=== PATIENT | male | born 1985 | race African-American/Black ===

== ENCOUNTER 2017-02-01 19:37 | Emergency (ER) | payer SELFPAY ==
[~2017-02-01] VITALS: Ht 185.4 cm; Wt 70.3 kg
[2017-02-01 19:58] VITALS: BP 157/97
--- NOTE | 2017-02-02 05:55 | ED.ADGEN ---
Past History Past Medical History: Hypertension Past Surgical History: No Surgical History Alcohol Use: None Drug Use: None Adult General Chief Complaint Chief Complaint Dizziness HPI HPI Patient is a 31-year-old -[place] male presents with right ear fullness and complaints of dizziness with walking. No headache, vomiting, loss of hearing. History of seasonal allergies. Review of Systems Review of Systems Review symptoms as per history of present illness. All other review symptoms are negative Allergies Allergies Allergies Coded Allergies Type Severity Reaction Last Updated Verified No Known Drug Allergies 07/12/14 No Physical Exam Physical Exam Constitutional: Well developed, well nourished, no acute distress, non-toxic appearance. [] HENT: Normocephalic, atraumatic, bilateral external ears normal, clear effusion behind right TM oropharynx moist, no oral exudates, nose normal. [] Eyes: PERRLA, EOMI, conjunctiva normal, no discharge. [] Neck: Normal range of motion, no tenderness, supple, no stridor. [] Cardiovascular:Heart rate regular rhythm, no murmur [] Lungs & Thorax: Bilateral breath sounds clear to auscultation [] Abdomen: Bowel sounds normal, soft, no tenderness, no masses, no pulsatile masses. [] Skin: Warm, dry, no erythema, no rash. [] Back: No tenderness, no CVA tenderness. [] Extremities: No tenderness, no cyanosis, no clubbing, ROM intact, no edema. [] Neurologic: Alert and oriented X 3, normal motor function, normal sensory function, no focal deficits noted. [] Psychologic: Affect normal, judgement normal, mood normal. [] Current Patient Data Vital Signs Vital Signs Date Time Temp Pulse Resp B/P (MAP) Pulse Ox O2 Delivery O2 Flow Rate FiO2 02/01/17 19:58 98.3 102 16 98 Room Air EKG EKG [] Radiology/Procedures Radiology/Procedures [] Course & Med Decision Making Course & Med Decision Making Pertinent Labs and Imaging studies reviewed. (See chart for details) [] Final Impression Final Impression [#1 acute serous otitis media #2 vertigo] Problems: Dragon Disclaimer Dragon Disclaimer This electronic medical record was generated, in whole or in part, using a voice recognition dictation system. SERGIO CAMPOS DO Feb 02, 2017 05:55
== END 2017-02-01 20:51 | disposition home or self-care (01) ==
LOC: ER 19:37
DX: H65.01 Acute serous otitis media, right ear (principal); R42 Dizziness and giddiness; I10 Essential (primary) hypertension
CPT/HCPCS: 99282

== ENCOUNTER 2017-07-23 01:53 | Emergency (ER) | payer SELFPAY ==
[~2017-07-23] VITALS: Ht 185.4 cm; Wt 70.3 kg
[2017-07-23 01:53] VITALS: BP 138/96
[2017-07-23] MEDS ORDERED: ACETAMINOPHEN 500 MG TABLET PO ONE (02:30)
[2017-07-23 02:43] LABS: INFLUENZA A PATIENT NEGATIVE (NEGATIVE); INFLUENZA B PATIENT NEGATIVE (NEGATIVE)
[2017-07-23] MEDS ORDERED: PRED20TA PO (02:55)
[2017-07-23] MEDS ORDERED: MOME17SP NS (02:55)
--- NOTE | 2017-07-23 03:05 | PHYS DOC ---
General Chief Complaint: COUGH Stated Complaint: COLD,FEVER,HEADACHE PRESSURE Time Seen by MD: 02:09 Source: patient Exam Limitations: no limitations Problems: History of Present Illness Initial Comments 32-year-old male comes to the ED complaining of sneezing and watery eyes and dry cough. Patient states that since Wednesday he's had the above symptoms denies any discharge other than thin clear nasal drainage. He's had itchy watery eyes and sneezing with some mild frontal and maxillary pressure. No fever or chills no body aches his primary complaint is the nasal symptoms are interrupting ability to sleep. He thinks symptoms may be due to allergies as they're onset coincides with the change in weather. Influenza studies obtained by staff prior to my seeing the patient Timing/Duration: other Severity: moderate Modifying Factors: improves with other Associated Symptoms: cough, other Allergies: Coded Allergies: No Known Drug Allergies (Unverified , 07/12/14) Past Medical History Medical History: no pertinent history Surgical History: noncontributory Social History Smoker: cigarettes Alcohol: none Drugs: none Review of Systems Constitutional: denies chills, denies fever, denies malaise EENTM: see HPI, denies eye pain, tearing, denies ear pain, denies ear discharge , denies nose pain, nose congestion, denies throat pain Respiratory: cough, denies orthopnea, denies shortness of breath, denies wheezing Cardiovascular: denies chest pain, denies palpitations, denies syncope Gastrointestinal: denies abdominal pain, denies nausea, denies vomiting Musculoskeletal: denies back pain, denies joint swelling, denies neck pain Psychiatric/Neurological: denies headache, denies numbness, denies paresthesia Physical Exam General Appearance: WD/WN, no apparent distress Eyes: bilateral eye PERRL, bilateral eye EOMI, bilateral eye other ( conjunctivae injected) Ear, Nose, Throat: other (turbinates inflamed clear nasal discharge) Neck: non-tender, supple Respiratory: normal breath sounds, no respiratory distress Cardiovascular: normal peripheral pulses, regular rate, rhythm Extremities: non-tender, normal inspection 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 Tylenol and ibuprofen as needed. Discontinue tobacco abuse. Rx: prednisone, nasonex Follow up at [facility] in 2 weeks if no improvement. Return to ED with new or changing symptoms. VANI ZAMBRANO DO Jul 23, 2017 03:05
[2017-07-23] MEDS ORDERED: predniSONE 20 MG TABLET PO ONE (03:30)
== END 2017-07-23 03:10 | disposition home or self-care (01) ==
LOC: ER 01:53
DX: J30.9 Allergic rhinitis, unspecified (principal); F17.210 Nicotine dependence, cigarettes, uncomplicated
CPT/HCPCS: 87804; 99284

== ENCOUNTER 2019-02-14 12:28 | Emergency (ER) | payer SELFPAY ==
[~2019-02-14] VITALS: Ht 185.4 cm; Wt 70.3 kg
[~2019-02-14 12:28] MED LIST: MOME17SP NS; PRED20TA PO
[2019-02-14 12:37] VITALS: BP 155/107
[2019-02-14] MEDS ORDERED: LIDO15SO2 MT (13:22)
--- NOTE | 2019-02-14 13:23 | PHYS DOC ---
Past History Past Medical History: Hypertension Past Surgical History: No Surgical History Alcohol Use: None Drug Use: None Adult General Chief Complaint Chief Complaint: MULTIPLE COMPLAINTS [facility] HPI Patient is a 33-year-old male who presents with complaint of sore throat and gagging sensation at times. Patient states that he is able to swallow but sometimes he just feels like he is gagging because of the sore throat. He states that he just recently got over a cold. He states these been having some intermittent coughing but denies any nasal discharge. He also denies any fever, chest pain or shortness breath.[] Review of Systems Review of Systems Constitutional: Denies fever or chills [] HENT: Positive sore throat [] Respiratory: Positive cough without shortness of breath [] Cardiovascular: No additional information not addressed in HPI [] Integument: Denies rash or skin lesions [] Allergies Allergies Allergies Coded Allergies Type Severity Reaction Last Updated Verified No Known Drug Allergies 07/12/14 No Physical Exam Physical Exam Constitutional: Well developed, well nourished, no acute distress, non-toxic appearance. [] HENT: Normocephalic, atraumatic, bilateral external ears normal, pharyngeal erythema without exudates. [] Neck: Normal range of motion, no tenderness, supple, mild cervical lymphadenopathy. [] Cardiovascular:Heart rate regular rhythm, no murmur [] Lungs & Thorax: Bilateral breath sounds clear to auscultation [] Current Patient Data Vital Signs Vital Signs Date Time Temp Pulse Resp B/P (MAP) Pulse Ox O2 Delivery O2 Flow Rate FiO2 02/14/19 12:37 98.1 99 EKG EKG [] Radiology/Procedures Radiology/Procedures [] Course & Med Decision Making Course & Med Decision Making Pertinent Labs and Imaging studies reviewed. (See chart for details) [] Dragon Disclaimer Dragon Disclaimer This electronic medical record was generated, in whole or in part, using a voice recognition dictation system. Departure Departure: Impression: Primary Impression: Pharyngitis Disposition: 01 HOME, SELF-CARE Condition: STABLE Referrals: PCP,NO (PCP) Patient Instructions: Viral Pharyngitis Scripts Lidocaine HCl (Lidocaine HCl Viscous) 15 Ml Solution 5 ML MT Q4HRS PRN for sore throat, #100 MISC Prov: JACKSON DENIS Jr. DO 02/14/19 Problem Qualifiers Primary Impression: Pharyngitis Pharyngitis/tonsillitis etiology: unspecified etiology Qualified Codes: J02.9 - Acute pharyngitis, unspecified JACKSON DENIS Jr. DO Feb 14, 2019 13:22
== END 2019-02-14 13:42 | disposition home or self-care (01) ==
LOC: ER 12:28
DX: J02.9 Acute pharyngitis, unspecified (principal); I10 Essential (primary) hypertension
CPT/HCPCS: 87070; 87880; 99283

== ENCOUNTER 2019-03-03 19:39 | Emergency (ER) | payer SELFPAY ==
[~2019-03-03] VITALS: Ht 185.4 cm; Wt 71.9 kg
[~2019-03-03 19:39] MED LIST changes: +LIDO15SO2 MT
[2019-03-03 19:45] VITALS: BP 146/93
--- NOTE | 2019-03-03 19:47 | ED.ADGEN ---
Past History Past Medical History: Hypertension Past Surgical History: No Surgical History Alcohol Use: None Drug Use: None Adult General Chief Complaint Chief Complaint ".. I got these white spots in my throat.. and sometimes it feels swollen.. I was here 2 weeks ago.. for same things.. the said it was post nasal drainage.. a viral or allergy thing.... but I am worried... something is wrong..." HPI HPI Patient is a 33 year old male who presents with above hx and complaints of sore throat. Patient does have mildly injected pharynx with some very small white plaques. No history or chain adenopathy. No stridor. Does have some mild postnasal drip. Patient has very severe dental decay with molars rotted into the gums bilaterally. No trismus. No pointing abscesses. Patient denies any history immunosuppression. No travel. No specific ill contacts. Patient denies history of oral sex. Patient remote history of gonorrhea which was treated. Patient normally follows at [place] Review of Systems Review of Systems Constitutional: Denies fever or chills [] Eyes: Denies change in visual acuity, redness, or eye pain [] HENT: Complaints of dental pain, nasal congestion and sore throat [] Respiratory: Denies cough or shortness of breath [] Cardiovascular: No additional information not addressed in HPI [] GI: Denies abdominal pain, nausea, vomiting, bloody stools or diarrhea [] : Denies dysuria or hematuria [] Musculoskeletal: Denies back pain or joint pain [] Integument: Denies rash or skin lesions [] Neurologic: Denies headache, focal weakness or sensory changes [] Endocrine: Denies polyuria or polydipsia [] All other systems were reviewed and found to be within normal limits, except as documented in this note. Family History Family History Noncontributory Current Medications Current Medications Current Medications Medications (Trade) Dose Ordered Sig/[place] Start Time Stop Time Status Last Admin Dose Admin Prednisone (Prednisone) 20 mg STK-MED ONCE 03/03/19 20:12 03/03/19 20:12 DC Allergies Allergies Allergies Coded Allergies Type Severity Reaction Last Updated Verified No Known Drug Allergies 03/03/19 No Physical Exam Physical Exam Constitutional: Well developed, well nourished, moderate acute distress, non- toxic appearance. [] HENT: Normocephalic, atraumatic, bilateral external ears normal, oropharynx moist, very mild injected pharynx, few small aphthous ulcers, no oral exudates, nose injected turbinates with clear rhinorrhea. Very extensive dental decay. Eyes: PERRLA, EOMI, conjunctiva normal, no discharge. [] Neck: Normal range of motion, no tenderness, supple, no stridor. [] Cardiovascular:Heart rate regular rhythm, no murmur [] Lungs & Thorax: Bilateral breath sounds equal at apex with few scattered wheezes on auscultation [] Abdomen: Bowel sounds normal, soft, no tenderness, no masses, no pulsatile masses. [] Skin: Warm, dry, no erythema, no rash. [] Back: No tenderness, no CVA tenderness. [] Extremities: No tenderness, no cyanosis, no clubbing, ROM intact, no edema. [] Neurologic: Alert and oriented X 3, normal motor function, normal sensory function, no focal deficits noted. [] Psychologic: Affect anxious, judgement normal, mood normal. [] Current Patient Data Vital Signs Vital Signs Date Time Temp Pulse Resp B/P (MAP) Pulse Ox O2 Delivery O2 Flow Rate FiO2 03/03/19 19:45 98.4 98 20 100 Room Air Lab Results Laboratory Tests Test 03/03/19 19:57 Group A Streptococcus Rapid Negative (NEGATIVE) EKG EKG [] Radiology/Procedures Radiology/Procedures [] Course & Med Decision Making Course & Med Decision Making Pertinent Labs and Imaging studies reviewed. (See chart for details). Patient strep screen was negative advised patient most likely have a viral syndrome. Pt. Also may have a component of postnasal drip. Patient must follow- up with dentist. This could be the major contributing to his symptoms. Patient return of any concerns. Must follow-up with dentist. Encouraged the patient to stop smoking. [] Final Impression Final Impression 1. Pharyngitis[]- viral syndrome 2. Extensive dental decay 3. Tobacco use Dragon Disclaimer Dragon Disclaimer This electronic medical record was generated, in whole or in part, using a voice recognition dictation system. Dragon Disclaimer This chart was dictated in whole or in part using Voice Recognition software in a busy, high-work load, and often noisy Emergency Department environment. It may contain unintended and wholly unrecognized errors or omissions. NICOLAS FLETCHER MD Mar 03, 2019 19:47
[2019-03-03] MEDS ORDERED: predniSONE 20 MG TABLET ONE (20:12)
[2019-03-03] MEDS ORDERED: predniSONE 20 MG TABLET PO ONE (20:15)
== END 2019-03-03 20:35 | disposition home or self-care (01) ==
LOC: ER 19:39
DX: B34.9 Viral infection, unspecified (principal); K02.9 Dental caries, unspecified; R09.82 Postnasal drip; I10 Essential (primary) hypertension; Z72.0 Tobacco use
CPT/HCPCS: 87070; 87880; 99283; J7512

== ENCOUNTER 2019-07-23 17:32 | Emergency (ER) | payer SELFPAY ==
[~2019-07-23] VITALS: Ht 185.4 cm; Wt 71.9 kg
[2019-07-23 17:32] VITALS: BP 137/90
[~2019-07-23 17:32] MED LIST changes: -LIDO15SO2 MT; +LIDO20SO10 MT
--- NOTE | 2019-07-23 17:50 | PHYS DOC ---
Past History Past Medical History: Anxiety, Hypertension Past Surgical History: No Surgical History, Other Additional Past Surgical Histo: cyst removed from lt upper arm Alcohol Use: None Drug Use: None Adult General Chief Complaint Chief Complaint: MULTIPLE COMPLAINTS HPI HPI Patient is a 34-year-old male who presents to the emergency department for evaluation. He states he has been having an abnormal sensation while swallowing in his throat for the past many months, he has been seen in the emergency department in the past, tested negative for strep, but has not followed up with ENT as an outpatient. He also states for the past several months, he has been having episodes of lightheadedness, primarily when he gets anxious, such as walking into a public place, and he does have an underlying history of anxiety. He denies any pain at this time, including any throat pain. Denies any chest pain, current lightheadedness, shortness of breath, palpitations, headache, vision changes, numbness, or weakness. There are no alleviating or exacerbating factors to his symptoms. The patient is having no new or acute complaints, all of his symptoms have been ongoing for several months and relatively stable, his dizziness and lightheadedness is intermittent and situational. Review of Systems Review of Systems Constitutional: Denies fever or chills [] Eyes: Denies change in visual acuity, redness, or eye pain [] HENT: Denies nasal congestion or sore throat denies throat pain[] Respiratory: Denies cough or shortness of breath [] Cardiovascular: The patient denies any shortness of breath, chest pain, palpitations, or orthopnea [] GI: Denies abdominal pain, nausea, vomiting, bloody stools or diarrhea [] : Denies dysuria or hematuria [] Musculoskeletal: Denies back pain or joint pain [] Integument: Denies rash or skin lesions [] Neurologic: Denies headache, focal weakness or sensory changes [] Endocrine: Denies polyuria or polydipsia [] All other systems were reviewed and found to be within normal limits, except as documented in this note. Allergies Allergies Allergies Coded Allergies Type Severity Reaction Last Updated Verified No Known Drug Allergies 03/03/19 No Physical Exam Physical Exam PHYSICAL EXAM: CONSTITUTIONAL: Well developed, well nourished HEAD: normocephalic, atraumatic EENT: PERRL, EOMI. Conjunctivae normal color, sclerae non-icteric; moist mucous membranes. The oropharynx is nonerythematous. There is no exudate. The uvula is midline. There is no abnormality noted. Tympanic membranes are normal bilaterally. NECK: Supple, non-tender; no meningismus. LUNGS: Lungs CTA, breathing even and unlabored. Normal air movement. HEART: Regular rate and rhythm, no murmur CHEST: No deformity; non-tender ABDOMEN: The abdomen is soft, and non-tender, no masses or bruits. EXTREM: Normal ROM; no deformity, no calf tenderness. Normal pulses palpable in all extremities. There is no pedal edema. SKIN: No rash; no diaphoresis NEURO: Alert; normal speech and cognition; CN's grossly intact; strength grossly intact without focal deficit. BACK: No CVA TTP. PSYCHIATRIC: The patient is currently calm. EKG EKG [] Radiology/Procedures Radiology/Procedures [] Course & Med Decision Making Course & Med Decision Making Patient underwent a medical screening exam, and per hospital MSE policy, declined to complete course of treatment in this facility. I did discuss importance of obtaining outpatient ENT follow-up, and return precautions were discussed in detail. Dragon Disclaimer Dragon Disclaimer This electronic medical record was generated, in whole or in part, using a voice recognition dictation system. Departure Departure: Impression: Primary Impression: Dizziness Additional Impressions: Anxiety Throat discomfort Disposition: 07 AGAINST MEDICAL ADVICE Condition: STABLE Referrals: PCP,NO (PCP) Patient Instructions: Anxiety and Panic Attacks, Sore Throat Additional Instructions: Follow-up with ENT for your ongoing throat pain, and follow up with a PCP for further treatment of your anxiety. Problem Qualifiers CORRINA MENDEZ MD Jul 23, 2019 17:50
== END 2019-07-23 17:55 | disposition left against medical advice (07) ==
LOC: ER 17:32
DX: R42 Dizziness and giddiness (principal); F41.9 Anxiety disorder, unspecified; J39.2 Other diseases of pharynx; I10 Essential (primary) hypertension
CPT/HCPCS: 99281

== ENCOUNTER 2020-06-22 07:23 | Emergency (ER) | payer OTHER ==
[~2020-06-22] VITALS: Ht 185.4 cm; Wt 79.0 kg
[2020-06-22 07:30] VITALS: BP 153/109
[2020-06-22] MEDS ORDERED: DOXY100C2 PO (07:41)
--- NOTE | 2020-06-22 07:42 | PHYS DOC ---
Past History Past Medical History: Anxiety, Hypertension Past Surgical History: Other Additional Past Surgical Histo: cyst removed from lt upper arm Alcohol Use: None Drug Use: None Adult General Chief Complaint Chief Complaint: SEXUALLY TRANSMITTED DISEASE [facility] HPI Patient is a 35-year-old male who presents to the emergency room complaining of penile discharge and urethral pain that started yesterday. He states that his girlfriend recently tested positive for gonorrhea. He has not yet been treated for this. He denies any kind of fever or other symptoms. He has not had any swelling or changes to his penis or testicles. He has not had any kind of rash or lesions. Review of Systems Review of Systems Complete ROS is negative unless otherwise documented in HPI Allergies Allergies Allergies Coded Allergies Type Severity Reaction Last Updated Verified No Known Drug Allergies 03/03/19 No Physical Exam Physical Exam General: Awake, alert, NAD. Well Nourished, well hydrated. Cooperative HEENT: Atraumatic, EOMI, PERRL, airway patent, moist oral mucosa Neck: Supple, trachea midline MSK: No obvious deformities Skin: Warm, dry, intact Neuro: A&O x3, speech NL, sensory and motor grossly intact, no focal deficits Psych: Normal affect, normal mood, not suicidal or homicidal EKG EKG [] Radiology/Procedures Radiology/Procedures [] Heart Score Risk Factors: Risk Factors: DM, Current or recent (<one month) smoker, HTN, HLP, family history of CAD, obesity. Risk Scores: Risk Factors: DM, Current or recent (<one month) smoker, HTN, HLP, family history of CAD, obesity. Course & Med Decision Making Course & Med Decision Making Pertinent Labs and Imaging studies reviewed. (See chart for details) Patient is a 35 year-old male who presents to the Emergency Room complaining of penile discharge and pain. Patient's presentation is concerning for urethritis due to possible sexually transmitted disease. Patient does not have any lesions or swelling at this time. UA and gonorrhea chlamydia urine PCR will be ordered. Patient will be treated empirically with Flagyl, Rocephin, and zofran. We will place him on doxycycline for 7 days as this is the new recommendation. I have discussed with the patient that they will need to follow up with the health department for full testing, that their partners should be tested and treated, and that they should not have sexual intercourse for at least 7 days after treatment. Patient's test results and vitals while in the ED were fully reviewed and discussed with the patient. Patient is stable and at this time does not need admission to the hospital. We have discussed strict return precautions and the importance of following up with their Primary Care Physician. Patient stated understanding and was given an opportunity to ask any questions. Patient is in agreement with plan. Dragon Disclaimer Dragon Disclaimer This electronic medical record was generated, in whole or in part, using a voice recognition dictation system. Departure Departure: Impression: Primary Impression: STD (male) Additional Impression: Urethritis Disposition: 01 DC HOME SELF CARE/HOMELESS Condition: STABLE Referrals: PCP,NO (PCP) Patient Instructions: Sexually Transmitted Disease Scripts Doxycycline Hyclate (DOXYCYCLINE HYCLATE) 100 Mg Capsule 1 CAP PO BID for infx, #14 CAP Prov: VITO BERTRAND MD 06/22/20 Problem Qualifiers VITO BERTRAND MD Jun 22, 2020 07:42
[2020-06-22] MEDS ORDERED: metroNIDAZOLE 500 MG TABLET PO ONE (07:45)
[2020-06-22] MEDS ORDERED: ONDANSETRON ODT 4 MG TAB.RAPDIS PO ONE (07:45)
[2020-06-22 09:08] LABS: BACTERIA,URINE 0 /HPF (0-FEW); BILIRUBIN,URINE NEG (NEG); CLARITY,URINE CLEAR; COLOR,URINE YELLOW; GLUCOSE,URINE NEG (NEG); NITRITE,URINE NEG (NEG); RBC,URINE OCC /HPF (0-2); UROBILINOGEN,URINE 0.2 mg/dL (0.2 mg/dL)
== END 2020-06-22 08:10 | disposition home or self-care (01) ==
LOC: ER 07:23
DX: A64 Unspecified sexually transmitted disease (principal); N34.2 Other urethritis; F41.9 Anxiety disorder, unspecified; I10 Essential (primary) hypertension
CPT/HCPCS: 36415; 81001; 87086; 87491; 87591; 96372; 99283; J0696; Q0162

== ENCOUNTER 2020-07-01 01:36 | Emergency (ER) | payer OTHER ==
[~2020-07-01] VITALS: Ht 185.4 cm; Wt 78.0 kg
[~2020-07-01 01:36] MED LIST changes: +DOXY100C2 PO
--- NOTE | 2020-07-01 02:15 | PHYS DOC ---
Past History Past Medical History: Anxiety, Hypertension Past Surgical History: Other Additional Past Surgical Histo: cyst removed from lt upper arm Alcohol Use: None Drug Use: None Adult General Chief Complaint Chief Complaint: URINARY FREQUENCY HPI HPI Patient is a 35-year-old male who presents with a chief complaint of urinary urgency and frequency. States he had similar symptoms approximately a week ago and at the time had a little white discharge when he urinated and was tested for gonorrhea and chlamydia. Those were both negative. Patient's urine suggestive apparently of urinary tract infection but culture was also negative. Patient got ceftriaxone and started on doxy. States he has a couple days left of his doxycycline. States that he still having a little urinary urgency, and frequency but the discharge is gone. States that he has been having sexual intercourse unprotected with a new lubrication which he started just before having issues. Denies any recent travel, illnesses, fevers, chest pain, abdominal pain, nausea, vomiting, hematuria or blood in the stool. States he exclusively has intercourse with women but does allow woman to insert her finger into his rectum during intercourse. Review of Systems Review of Systems Review of systems otherwise unremarkable except noted in HPI Allergies Allergies Allergies Coded Allergies Type Severity Reaction Last Updated Verified No Known Drug Allergies 06/22/20 No Physical Exam Physical Exam Constitutional: Well developed, well nourished, no acute distress, non-toxic appearance. [] HENT: Normocephalic, atraumatic, oropharynx moist, no oral exudates, nose normal. [] Eyes: conjunctiva normal, no discharge. [] Neck: Normal range of motion, Cardiovascular: Tachycardic with regular rhythm Lungs & Thorax: Bilateral breath sounds clear to auscultation [] Abdomen: Bowel sounds normal, soft, no tenderness, no masses, no pulsatile masses. [] Skin: Warm, dry, no erythema, no rash. [] Back: No tenderness, no CVA tenderness. [] Extremities: No tenderness, no cyanosis, no clubbing, ROM intact, no edema. [] Neurologic: Alert and oriented X 3, normal motor function, normal sensory function, no focal deficits noted. [] Psychologic: Affect normal, judgement normal, mood normal. [] : Normal circumcised penis with no lesions. Normal testicle with no tenderness or swelling. No lymphadenopathy in the groin/inguinal area. Normal rectum. Current Patient Data Vital Signs Vital Signs Date Time Temp Pulse Resp B/P (MAP) Pulse Ox O2 Delivery O2 Flow Rate FiO2 07/01/20 01:36 98.8 118 18 131/96 (108) 97 Room Air Lab Results Laboratory Tests Test 07/01/20 01:45 Urine Collection Type Unknown Urine Color Yellow Urine Clarity Clear Urine pH 7.0 Urine Specific Ber[place] 1.025 Urine Protein Neg (NEG-TRACE) Urine Glucose (UA) Neg mg/dL (NEG) Urine Ketones (Stick) Trace mg/dL (NEG) Urine Blood Trace (NEG) Urine Nitrite Neg (NEG) Urine Bilirubin Neg (NEG) Urine Urobilinogen Dipstick 0.2 mg/dL (0.2 mg/dL) Urine Leukocyte Esterase Neg (NEG) Urine RBC Occ /HPF (0-2) Urine WBC Occ /HPF (0-4) Urine Squamous Epithelial Cells None /LPF Urine Bacteria 0 /HPF (0-FEW) EKG EKG [] Radiology/Procedures Radiology/Procedures [] Heart Score Risk Factors: Risk Factors: DM, Current or recent (<one month) smoker, HTN, HLP, family history of CAD, obesity. Risk Scores: Risk Factors: DM, Current or recent (<one month) smoker, HTN, HLP, family history of CAD, obesity. Course & Med Decision Making Course & Med Decision Making Patient is a 35-year-old male that presents with urinary symptoms Vital signs notable for tachycardia. Physical exam noted above. Patient had gonorrhea, chlamydia and urinalysis recently that were negative. Patient states symptoms are improving. States he has approximately 2 days left of his current doxycycline. Discussed differential diagnosis including urinary tract infection, prostatitis, chemical urethritis due to his lubricants, STI. Confirmed patient's negative gonorrhea and Chlamydia analysis from last week. Continue patient's doxycycline out to 14 days to cover possible prostatitis given symptoms and tenderness of prostate. Urinalysis not concerning. At patient's request, given information for local primary care physicians so he can establish care as he does not currently have a physician. Advised to call around today and establish care as to allow a follow-up visit in a couple of weeks when his full course of doxycycline is completed. Advised cessation of intercourse until all symptoms have resolved especially using any lubrication or harsh chemicals/soaps. Advised to come back to the ED with any new or concerning symptoms. [] Dragon Disclaimer Dragon Disclaimer This electronic medical record was generated, in whole or in part, using a voice recognition dictation system. Departure Departure: Impression: Primary Impression: Urinary frequency Disposition: 01 DC HOME SELF CARE/HOMELESS Condition: GOOD Referrals: PCP,NO (PCP) Patient Instructions: Prostatitis, [id number], Urinary Frequency Additional Instructions: Please read the attached information. Please take your doxycycline as prescribed. Please contact a primary care physician from the list given to you to establish care and set up follow-up appointments in the next week or 2 after you finish your course of doxycycline for repeat evaluation and treatment if necessary. Please refrain from any sexual activity and harsh chemical or lubric ant use until symptoms resolve to ensure resolution of possible chemical urethritis as discussed. Please come back to the emergency department immediately with any new or concerning symptoms. Scripts Doxycycline Hyclate (DOXYCYCLINE HYCLATE) 100 Mg Capsule 1 CAP PO BID for urinary symptoms for 7 Days, #14 CAP Prov: YULIANA MASSEY MD 07/01/20 YULIANA MASSEY MD Jul 01, 2020 02:15
[2020-07-01] MEDS ORDERED: DOXY100C2 PO (02:31)
[2020-07-01 02:39] LABS: BILIRUBIN,URINE NEG (NEG); CLARITY,URINE CLEAR; COLOR,URINE YELLOW; GLUCOSE,URINE NEG (NEG); NITRITE,URINE NEG (NEG); UROBILINOGEN,URINE 0.2 mg/dL (0.2 mg/dL)
[2020-07-01 02:40] LABS: BACTERIA,URINE 0 /HPF (0-FEW); RBC,URINE OCC /HPF (0-2); WBC,URINE OCC /HPF (0-4)
[2020-07-01 02:50] VITALS: BP 141/96
== END 2020-07-01 02:50 | disposition home or self-care (01) ==
LOC: ER 01:36
DX: R35.0 Frequency of micturition (principal); R39.15 Urgency of urination; I10 Essential (primary) hypertension; F41.9 Anxiety disorder, unspecified
CPT/HCPCS: 81001; 99283